=== PATIENT | male | born 1995 | race American Indian/Alaskan Native ===

== ENCOUNTER 2018-02-24 23:48 | Emergency (ER) | payer OTHER ==
[2018-02-25 01:03] LABS: Basophils % (Auto) 0.3 % (0.0-1.8); Eosinophils % (Auto) 0.3 % (0.0-4.3); Hematocrit 43.6 % (35.5-45.6); Hemoglobin 14.8 gm/dl (11.8-15.2); Lymphocytes # (Auto) 2.6 K/mm3 (1.2-5.4); Lymphocytes % (Auto) 23.4 % (13.4-35.0); Mean Corpuscular HGB Conc 34 % (32-34); Mean Corpuscular Hemoglobin 34 pg (28-32); Mean Corpuscular Volume 99 fl (84-94); Monocytes # (Auto) 0.7 K/mm3 (0.0-0.8); Monocytes % (Auto) 6.2 % (0.0-7.3); Platelet Count 253 K/mm3 (140-440); Red Blood Count 4.42 M/mm3 (3.65-5.03); Red Cell Distribution Width 12.6 % (13.2-15.2)
[2018-02-25 01:17] LABS: Alanine Aminotransferase 16 units/L (7-56); Albumin 4.5 g/dL (3.9-5); BUN/Creatinine Ratio 13; Blood Urea Nitrogen 13 mg/dL (9-20); Calcium 9.8 mg/dL (8.4-10.2); Hemolysis Index 11
[2018-02-25] MEDS: MOTRIN PO ONE (01:27)
[2018-02-25] MEDS: TYLENOL PO ONE (01:28)
[2018-02-25] MEDS: ZOFRAN ODT PO ONE (01:28)
[2018-02-25 01:35] VITALS: BP 130/84
--- NOTE | 2018-02-25 01:39 | Emergency Department Report ---
ED Abdominal Pain HPI - General Chief Complaint: Abdominal Pain Stated Complaint: ABD PAIN Time Seen by Provider: 02/25/18 01:15 Source: patient Mode of arrival: Ambulatory Limitations: No Limitations - History of Present Illness Initial Comments: 1 day of epigastric abdominal pain that is nonradiating and intermittent. It is worse with eating. Associated with nausea or vomiting, but no diarrhea. No history of abdominal surgeries. Denies dysuria. Last vomiting yesterday. No history constipation. Social alcohol drinker. Patient is currently on hormone therapy, as she is transitioning from male to female. Afebrile. Severity scale (0 -10): 5 - Related Data Previous Rx's Medication Instructions Recorded Last Taken Type Sucralfate [Carafate] 1 gm PO Q6HR PRN #1 bottle 02/25/18 Unknown Rx Allergies Allergy/AdvReac Type Severity Reaction Status Date / Time No Known Allergies Allergy Verified 02/25/18 01:30 ED Review of Systems ROS: Stated complaint: ABD PAIN Other details as noted in HPI Comment: All other systems reviewed and negative Gastrointestinal: abdominal pain, nausea, vomiting ED Past Medical Hx - Past Medical History Previous Medical History?: Yes Additional medical history: transgender - Surgical History Past Surgical History?: No - Social History Smoking Status: Never Smoker Substance Use Type: None - Medications Home Medications: Home Medications Medication Instructions Recorded Confirmed Last Taken Type Sucralfate [Carafate] 1 gm PO Q6HR PRN #1 bottle 02/25/18 Unknown Rx ED Physical Exam - General Limitations: No Limitations General appearance: alert, in no apparent distress - Head Head exam: Present: atraumatic, normocephalic - Eye Eye exam: Present: normal appearance - ENT ENT exam: Present: mucous membranes moist - Neck Neck exam: Present: normal inspection - Respiratory Respiratory exam: Present: normal lung sounds bilaterally. Absent: respiratory distress - Cardiovascular Cardiovascular Exam: Present: regular rate, normal rhythm. Absent: systolic murmur, diastolic murmur, rubs, gallop - GI/Abdominal GI/Abdominal exam: Present: soft, tenderness (epigastric, neg drew's sign), normal bowel sounds. Absent: guarding, rebound, rigid - Rectal Rectal exam: Present: deferred - Extremities Exam Extremities exam: Present: normal inspection - Back Exam Back exam: Present: normal inspection - Neurological Exam Neurological exam: Present: alert, oriented X3 - Psychiatric Psychiatric exam: Present: normal affect, normal mood - Skin Skin exam: Present: warm, dry, intact, normal color. Absent: rash ED Course Vital Signs 02/24/18 02/25/18 23:52 01:31 Temperature 99.4 F 98.1 F Pulse Rate 93 H 78 Respiratory 18 19 Rate Blood Pressure 131/76 Blood Pressure 130/84 [Left] O2 Sat by Pulse 100 98 Oximetry ED Medical Decision Making - Lab Data Result diagrams: 02/24/18 23:58 02/24/18 23:58 - Medical Decision Making 22-year-old male that is in the process of transitioning from male to female presents to the ER with epigastric abdominal pain. Vital signs are stable. Patient is well-appearing. Lab work is unremarkable. Urinalysis has 100 whites in it. Patient denies urinary complaints. I will send it for culture and STD testing. Patient was given a GI cocktail, which resolved her symptoms. The patient is suffering from gastritis versus GERD. I have talked to her about dietary modifications. She has been provided with reading material. Clear for discharge. - Differential Diagnosis PUD, gastritis, cholecystitis, GERD, PE, pneumonia, gastroenteritis Critical care attestation.: If time is entered above; I have spent that time in minutes in the direct care of this critically ill patient, excluding procedure time. ED Disposition Clinical Impression: Gastritis Disposition: [id number] TO HOME OR SELFCARE Is pt being admited?: No Does the pt Need Aspirin: No Condition: Stable Instructions: Gastritis (ED), Diet for Ulcers and Gastritis (ED) Additional Instructions: Start taking a daily 20 mg Pepcid for the next week. This can be purchased over -the-counter. If your symptoms resolve in one week, then you can stop taking the medication. If they persist, continue taking the medicine. Prescriptions: Sucralfate [Carafate] 1 gm PO Q6HR PRN #1 bottle PRN Reason: Gas Pain Referrals: [facility] [Outside] - 3-5 Days
[2018-02-25] MEDS: ALUM-MAG HYDROX-SIMETH 200-200-20MG/5ML PO ONE (01:48)
[2018-02-25] MEDS: NACL 0.9% 1000 ML 1,000 ML IV ONE (01:48)
[2018-02-25] MEDS: LIDOCAINE VISCOUS 2% PO ONE (01:48)
[2018-02-25 02:03] LABS: Bacteria,Urine 1+ /HPF (Negative); Bilirubin,Urine NEG (Negative); Blood,Urine NEG (Negative); Color,Urine Yellow (Yellow); Mucus,Urine 2+ /HPF
--- NOTE | 2018-02-25 02:08 | XRay Report ---
FINAL REPORT EXAM: XR ABDOMEN 1V AP HISTORY: abdominal pain TECHNIQUE: Supine and upright views of the abdomen. PRIORS: None. FINDINGS: The bowel gas pattern appears normal. There are no suspicious calcifications. The bones are unremarkable. IMPRESSION: Normal bowel gas pattern.
== END 2018-02-25 02:52 | disposition home or self-care (01) ==
LOC: ED 23:48
DX: K29.70 Gastritis, unspecified, without bleeding (principal)
CPT/HCPCS: 36415; 74018; 80053; 81001; 85025; 87086